=== PATIENT | male | born 1960 | race Caucasian/White ===

== ENCOUNTER → 2016-08-13 | Outpatient (CLI) | payer OTHER ==
[~2016-08-13] MED LIST: HYDR1TAB97 PO; NAPR500T2 PO; PANT40TA2 PO; PERC5TAB6 PO; TRAZ150T14 PO
--- NOTE | 2016-08-13 10:26 | REP ---
CERVICAL SPINE, EIGHT VIEWS: HISTORY: Spondylosis. There is no acute fracture. The C2-3 and C5-6 through C7-T1 intervertebral discs are decreased in height consistent with disc degeneration. Osteophytes are present on C4 through C7. There is narrowing of the right C5 and 6 and left C5 through 7 neural foramina secondary to uncinate process hypertrophy. There are 2 mm of retrolisthesis of C3 on C4. This reduces with flexion and returns to 2 mm with extension. IMPRESSION: Degenerative change as described above. Signed by Brian Tapia MD 08/13/2016 10:33 A
--- NOTE | 2016-08-13 10:27 | REP ---
LUMBAR SPINE, SEVEN VIEWS: HISTORY: Spondylosis. There is no acute fracture or subluxation. The L3-4 through L5-S1 intervertebral discs are decreased in height consistent with disc degeneration. Osteophytes are present throughout the lumbar spine. The facet joints are normal in appearance. IMPRESSION: Degenerative change as described above. Signed by Brian Tapia MD 08/13/2016 10:33 A
--- NOTE | 2016-08-13 14:00 | REP ---
MRI LUMBAR SPINE WITHOUT CONTRAST: HISTORY: Spondylosis. Decreased signal intensity on T2-weighted images is present in the L1-2, L4-5 and L5-S1 intervertebral discs. The discs are decreased in height. These findings are consistent with disc degeneration. A diffuse disc bulge is present at the L1-2 level. There is minimal compression of the thecal sac. The L1 nerves exit the neural foramina without compression. There is no disc bulge or herniation at the L2-3 and L3-4 levels. There is hypertrophy of the posterior articulating facets. The nerves exit the neural foramina without compression. A diffuse disc bulge and small left paracentral disc extrusion are present at the L4-5 level. There is inferior migration of disc material. There is hypertrophy of the ligamenta flava and posterior articulating facets. These findings produce minimal central canal stenosis. There is compression of the left L5 nerve in the left L5 lateral recess. There is compression of the left L4 nerve in the neural foramen. The right L4 nerve exits the neural foramen without compression. A diffuse disc bulge and small right paracentral disc protrusion are present at the L5-S1 level. There is minimal compression of the thecal sac and right S1 nerve as it exits the thecal sac. There is hypertrophy of the posterior articulating facets. The L5 nerves exit the neural foramina without compression. The conus medullaris is normal in appearance terminating at the level of the T12-L1 intervertebral disc. Increased signal intensity on T2-weighted images is present in the end plates of the L5 and S1 vertebral bodies. This represents degenerative change. IMPRESSION: 1. Diffuse disc bulge at the L1-2 level with minimal thecal sac compression. 2. Minimal central canal stenosis at the L4-5 level secondary to disc bulge, disc extrusion, ligamentous and facet hypertrophy. There is compression of the left L5 nerve in the left L5 lateral recess and left L4 nerve in the left L4 neural foramen. 3. Diffuse disc bulge and small right paracentral disc protrusion at the L5-S1 level with minimal compression of the thecal sac and right S1 nerve as it exits the thecal sac. Signed by Brian Tapia MD 08/13/2016 02:08 P
== END ==
LOC: M RAD 07:43
PROVIDERS: ATTEND Neurological Surgery
DX: R93.7 Abnormal findings on diagnostic imaging of other parts of musculoskeletal system (principal); M47.896 Other spondylosis, lumbar region; M47.892 Other spondylosis, cervical region

== ENCOUNTER → 2016-11-29 | Outpatient (CLI) | payer OTHER ==
[~2016-11-29] MED LIST changes: +HYDR-3713 PO; -HYDR1TAB97 PO
--- NOTE | 2016-11-29 08:45 | REP ---
MRI LUMBAR SPINE WITHOUT CONTRAST: HISTORY: Spondylosis. A disc bulge and small central disc protrusion are present at the C3-4 level. There is moderate effacement of the thecal sac without spinal cord compression. Bilateral uncinate process hypertrophy is present. This produces moderate and mild narrowing of the right and left C3 neural foramina respectively. A disc bulge is present at the C4-5 level. There is mild effacement of the thecal sac without spinal cord compression. Bilateral uncinate process hypertrophy is present. This produces moderate and mild narrowing of the right and left C4 neural foramina respectively. A disc bulge and small right paracentral disc protrusion with associated osteophyte formation are present at the C5-6 level. There is moderate effacement of the thecal sac without spinal cord compression. Bilateral uncinate process hypertrophy is present. This produces mild narrowing of the C5 neural foramina. A disc bulge with associated osteophyte formation is present at the C6-7 level. There is moderate effacement of the thecal sac without spinal cord compression. Bilateral uncinate process hypertrophy is present. This produces moderate narrowing of the C6 neural foramina. A disc bulge is present at the C7-T1 level. There is mild effacement of the thecal sac without spinal cord compression. Bilateral uncinate process hypertrophy is present. This produces minimal and mild narrowing of the right and left C7 neural foramina respectively. There is no other disc bulge or herniation. The remaining neural foramina are patent. The spinal cord is normal in signal intensity. The C2-3 through C7-T1 intervertebral discs are decreased in height consistent with disc degeneration. A hemangioma is present in the C6 vertebral body. Normal signal intensity is present in the remaining cervical vertebral bodies. IMPRESSION: There is cervical spondylosis at the C3-4 through C7-T1 levels without spinal cord compression. Signed by Brian Tapia MD 11/29/2016 08:49 A
== END ==
LOC: M RAD 06:38
PROVIDERS: ATTEND Neurological Surgery
DX: M47.892 Other spondylosis, cervical region (principal)

== ENCOUNTER → 2019-09-15 | Outpatient (CLI) | payer MEDICARE, MEDICAID ==
[~2019-09-15] MED LIST changes: +NAPR-885 PO; -NAPR500T2 PO; -PANT40TA2 PO; +PANT40TA3 PO; +PERC5TAB12 PO; -PERC5TAB6 PO; -TRAZ150T14 PO; +TRAZ1TAB14 PO
--- NOTE | 2019-09-16 17:11 | REPVR ---
PROCEDURE INFORMATION: Exam: MR Lumbar Spine Without Contrast. Exam date and time: 09/15/2019 10:38 AM Age: 59 years old Clinical indication: Pain; Lumbago; Additional info: Intervertebral disc degeneration TECHNIQUE: Imaging protocol: Multiplanar magnetic resonance images of the lumbar spine without intravenous contrast. COMPARISON: MRI-Spine, L.S. without con 08/13/2016 8:17 AM FINDINGS: Vertebrae: Normal alignment. Spinal cord: Normal signal. No cord compression. L1-L2: Diffusely bulging annulus L1-L2 minimally effacing the ventral subarachnoid space. No central spinal stenosis. No lateral recess or foraminal stenosis. L2-L3: Mild facet joint arthropathy at L2-L3. No significant disc disease. L3-L4: Mild facet joint arthropathy L3-L4. No significant disc disease. L4-L5: Diffusely bulging annulus at L4-L5 with a left paracentral and foraminal zone disc protrusion asymmetrically effaces the left side of the thecal sac, likely impinging on the exiting ipsilateral L4 nerve root and posteriorly displacing the ipsilateral traversing L5 nerve roots. The bulging annulus in combination with the disc protrusion and facet joint arthropathy is resulting in a moderate to severe asymmetric central spinal stenosis. L5-S1: Bulging annulus L5-S1 with a broad right posterolateral disc protrusion extending into the foraminal zone. There is moderate narrowing of the ipsilateral neural foramen. The protrusion touches the exiting L5 nerve root far laterally. There is a mild central spinal stenosis secondary to the bulging annulus, disc herniation, thickened ligaments and facet joint arthropathy. Soft tissues: Unremarkable. IMPRESSION: 1. Bulging annulus at L4-L5 with a left paracentral and foraminal zone disc protrusion, not present previously, asymmetrically effaces the left side of the thecal sac, impinging on the exiting ipsilateral L4 nerve root and posteriorly displacing the ipsilateral traversing L5 nerve root. There is a moderate to severe asymmetric central spinal stenosis. 2. Bulging annulus L5-S1 with a broad right posterolateral disc protrusion extending into the foraminal zone. There is moderate narrowing of the ipsilateral neural foramen. The protrusion touches the exiting L5 nerve root far laterally. There is a mild central spinal stenosis. Findings stable in comparison to the prior study. Electronically signed by: Maksim Carrillo On 09/16/2019 17:11:24 PM
== END ==
LOC: M RAD 09:15
PROVIDERS: ATTEND Physician Assistant
DX: M51.36 Other intervertebral disc degeneration, lumbar region (principal); M51.26 Other intervertebral disc displacement, lumbar region; M48.061 Spinal stenosis, lumbar region without neurogenic claudication

== ENCOUNTER → 2019-12-31 | Outpatient (CLI) | payer MEDICARE, MEDICAID | LOC: M LABSMTC 11:56 | PROVIDERS: ATTEND Anesthesiology | DX: Z01.818 Encounter for other preprocedural examination (principal); Z11.59 Encounter for screening for other viral diseases ==

== ENCOUNTER → 2020-01-03 | Day surgery (SDC) | payer MEDICARE, MEDICAID ==
[~2020-01-03] VITALS: Ht 177.8 cm; Wt 93.0 kg
[~2020-01-03] MED LIST changes: +BACITRACIN PWD 50,000 UNITS VIAL As Ordered ONE; +BUPIVACAINE/EPIN 0.25% 30 ML VIAL As Ordered ONE; +CelecoXIB (CeleBREX) 100 MG CAP PO ONE; +GABAPENTIN 300 MG CAP PO ONE; +LR 1,000 ML IV ONE; +PERCOCET 5MG/325MG TAB PO ONE; +THROMBIN SOLN 20,000 UNITS KIT As Ordered ONE
[2020-01-03 13:17] VITALS: BP 140/94
--- NOTE | 2020-01-04 22:07 | ECGEPIP ---
[facility] Test Date: 2020-01-03 Pat Name: VALERIA SWAIN Department: Room: - Gender: Male Director Of Clinical Services: JANETH : 1960 Requested By: Antwon Marrufo Order Number: [id number] Reading MD: Sahil Williamson Measurements Intervals [place] Rate: 71 P: 23 ME: 148 QRS: 5 QRSD: 98 T: 12 QT: 383 QTc: 418 Interpretive Statements SINUS RHYTHM Within normal limits. No prior ECG available for comparison at the time of interpretation. Electronically Signed on 01-04-2020 22:07:25 EDT by Sahil Williamson
== END | disposition home or self-care (01) ==
LOC: M SDC 11:39
PROVIDERS: ATTEND Orthopaedic Surgery
DX: M51.06 Intervertebral disc disorders with myelopathy, lumbar region (principal); Z53.29 Procedure and treatment not carried out because of patient's decision for other reasons

== ENCOUNTER → 2021-08-24 | Outpatient (CLI) | payer MEDICARE, MEDICAID, OTHER ==
[~2021-08-24] MED LIST changes: -BACITRACIN PWD 50,000 UNITS VIAL As Ordered ONE; -BUPIVACAINE/EPIN 0.25% 30 ML VIAL As Ordered ONE; -CelecoXIB (CeleBREX) 100 MG CAP PO ONE; -GABAPENTIN 300 MG CAP PO ONE; -LR 1,000 ML IV ONE; +PANT40TA29 PO; -PANT40TA3 PO; -PERCOCET 5MG/325MG TAB PO ONE; -THROMBIN SOLN 20,000 UNITS KIT As Ordered ONE
== END ==
LOC: M LABSMTC 09:38
PROVIDERS: ATTEND Anesthesiology
DX: Z01.812 Encounter for preprocedural laboratory examination (principal); Z20.822 Contact with and (suspected) exposure to COVID-19

== ENCOUNTER 2021-08-28 07:52 | Day surgery (SDC) | payer MEDICARE, MEDICAID ==
[~2021-08-28] VITALS: Ht 177.8 cm; Wt 89.4 kg
[~2021-08-28 07:52] MED LIST changes: +CIPROFLOXACIN 400 MG in IV 1 EA IV ONE; +CLEA6.5D OP; +FLOM0.4C39 PO; +IBUP200C89 PO; +LR 1,000 ML IV ONE; +OXYC-517 PO
[2021-08-28] MEDS ORDERED: CONRAY-60 60% 50ML VIAL (Q9961) As Ordered ONE (09:01)
[2021-08-28] MEDS ORDERED: fentaNYL 100 MCG/2 ML INJECTION (J3010) As Ordered ONE (09:17)
[2021-08-28] MEDS ORDERED: MIDAZOLAM INJ 2MG/2ML VIAL (J2250 PER 1MG) As Ordered ONE (09:17)
[2021-08-28] MEDS ORDERED: LIDOCAINE 2% 100MG/5ML SDV (FOR ANES.) As Ordered ONE (09:17)
[2021-08-28] MEDS ORDERED: ONDANSETRON 4MG/2ML VIAL As Ordered ONE (09:17)
[2021-08-28] MEDS ORDERED: dexameTHASONE 4 MG/ML 1ML VIAL (J1100 PER 1MG) As Ordered ONE (09:17)
[2021-08-28] MEDS ORDERED: propofoL 200 MG/20 ML VIAL As Ordered ONE (09:17)
[2021-08-28] MEDS ORDERED: ACETAMINOPHEN 1000MG 100ML IV BTL (OFIRMEV) (J0131 PER 10MG) As Ordered ONE (09:30)
[2021-08-28] MEDS ORDERED: ONDANSETRON 4MG/2ML VIAL IV PRN (10:20)
[2021-08-28] MEDS ORDERED: oxyCODONE 5MG TAB PO PRN (10:20)
[2021-08-28] MEDS ORDERED: fentaNYL 100 MCG/2 ML INJECTION (J3010) IV PRN (10:20)
[2021-08-28] MEDS ORDERED: METOCLOPRAMIDE INJ 10MG/2ML VIAL (J2765 PER 1) IV PRN (10:20)
[2021-08-28] MEDS ORDERED: LR 1,000 ML IV SCH (10:20)
[2021-08-28] MEDS ORDERED: PERCOCET 5MG/325MG TAB PO PRN (10:25)
[2021-08-28] MEDS ORDERED: hydrALAZINE 20MG/ML 1ML VIAL (J0360 PER 20MG) As Ordered ONE (10:29)
[2021-08-28] MEDS: hydrALAZINE 20MG/ML 1ML VIAL (J0360 PER 20MG) IV PRN ×2 (10:31→11:00)
[2021-08-28 11:17] VITALS: BP 159/90
[2021-09-01 13:09] LABS: CA Oxalate Dihy 30 % (.); Ca Ox Monohydrate 40 % (.); Size 7x4 mm (.)
== END 2021-08-28 11:50 | disposition home or self-care (01) ==
LOC: M SDC 07:52
PROVIDERS: ATTEND Urology
DX: N20.0 Calculus of kidney (principal); H40.9 Unspecified glaucoma; F12.10 Cannabis abuse, uncomplicated; K21.9 Gastro-esophageal reflux disease without esophagitis; Z79.899 Other long term (current) drug therapy
CPT/HCPCS: 52332; 52352; 74420; 82365; 88300; C1769; C1894; J0131; J0360; J0744; J1100; J2250; J2405; J3010; Q9961